=== PATIENT | female | born 1950 | race Caucasian/White ===

== ENCOUNTER → 2019-10-06 11:47 | Outpatient (CLI) | payer BC ==
[2010-03-13 09:27] VITALS: BMI 31.7
== END | disposition home or self-care (01) ==
LOC: D.LABREF 11:47
PROVIDERS: ATTEND Orthopaedic Surgery
DX: M17.11 Unilateral primary osteoarthritis, right knee (principal)

== ENCOUNTER 2020-12-26 16:06 | Inpatient (IN) | payer BC, MEDICARE ==
[~2020-12-26] VITALS: Ht 162.6 cm; Wt 76.2 kg
[2021-01-02] MEDS ORDERED: PRAVACHOL40 MG PO (08:49)
[2021-01-02] MEDS ORDERED: MOBIC7.5 MG PO (08:49)
[2021-01-02] MEDS ORDERED: ZYLOPRIM300 MG PO (08:49)
[2021-01-02] MEDS ORDERED: LISINOPRIL10 MG PO (08:49)
[2021-01-02] MEDS ORDERED: LOZOL 2.5 MG T2.5 MG PO (08:49)
[2021-01-02] MEDS ORDERED: K-DUR20 MEQ PO (08:50)
[2021-01-02] MEDS ORDERED: METHOCARBAMOL500 MG PO (08:50)
[2021-01-02] MEDS ORDERED: ULTRAM50 MG PO (08:50)
[2021-01-02] MEDS ORDERED: ESTRACE2 MG PO (08:50)
[2021-01-02] MEDS ORDERED: BAYER CHEWABLE81 MG PO (08:51)
[2021-01-02] MEDS ORDERED: ZYRTEC10 MG PO (08:53)
[2021-01-02] MEDS ORDERED: PEPCID AC20 MG PO (08:53)
[2021-01-02] MEDS ORDERED: COLACE100 MG PO (08:54)
[2021-01-02] MEDS ORDERED: TIROSINT50 MCG PO (09:05)
[2021-01-02 09:58] LABS: BASOPHILS 0.2 % (0-2); EOSINOPHILS 7.6 % (0-7); HEMATOCRIT 35.8 % (36.0-48.0); HEMOGLOBIN 11.5 g/dL (12-16); IMMATURE GRANULOCYTES 0.2 % (0-5); LYMPHOCYTE ABS# 3.03 10x3/uL (1.18-3.74); LYMPHOCYTES 24.4 % (15-50); MCH 30.4 pg (26.0-34.0); MCHC 32.1 g/dL (31.0-37.0); MCV 94.7 fL (80.0-100.0); MEAN PLATELET VOLUME 10.2 fL (7.4-10.4); MONOCYTES 7.9 % (2-11); NEUTROPHILS 59.7 % (40-80); PLATELET COUNT 251 10x3/uL (130-400); RBC 3.78 10x6/uL (4.00-5.40); RDW 14.1 % (11.5-14.5); WBC 12.4 10x3/uL (4.8-10.8)
[2021-01-02 10:09] LABS: ANION GAP 11.5 mmol/L (8-16); CALCIUM 9.3 mg/dL (8.5-10.1); CREATININE - SERUM 1.1 mg/dL (0.6-1.3); POTASSIUM - SERUM 3.5 mmol/L (3.5-5.1)
[2021-01-02 10:12] LABS: BILIRUBIN NEGATIVE (NEGATIVE); KETONE NEGATIVE (NEGATIVE); NITRITE NEGATIVE (NEGATIVE); SQUAMOUS EPITHELIAL 0-5 HPF (0-4); UROBILINOGEN NORMAL mg/dL (< 2); WHITE CELLS - URINE 0-5 HPF (0-4)
[2021-01-02 10:13] LABS: BACTERIA MODERATE HPF (NONE SEEN)
[2021-01-02 10:20] LABS: PROTIME 12.2 SECONDS (11.6-15.0)
[2021-01-07] VITALS (9 sets, daily range): BP systolic 96–122; BP diastolic 66–86; BMI 28.9
[2021-01-07 08:43] LABS: BILIRUBIN NEGATIVE (NEGATIVE); KETONE NEGATIVE (NEGATIVE); NITRITE NEGATIVE (NEGATIVE); UROBILINOGEN NORMAL mg/dL (< 2)
--- NOTE | 2021-01-07 10:45 | NUR ---
CAUTERY PAD PLACED ON RIGHT BUTTOCK. PLASMA BLADE USED ON SETTING 6/8. AQUAMANTYS USED ON SETTING 170. CAUTERY PAD LOT#[id number] EXP. 06/10/2022
--- NOTE | 2021-01-07 20:10 | NUR ---
ASSESSMENT PER FLOW SHEET, VS OBTAINED, IV IN RIGHT FA INTACT WITH NO REDNESS OR EDEMA INFUSING VIA PUMP 1/2NS PER MD ORDERS, SEE EMAR, DRESSING TO LEFT KNEE CDI WITH NO DRAINAGE NOTED, KNEE IN CPM AT THIS TIME, INFORMED PT THAT I WILL COME OFF AROUND 9:30PM, PT VERBALIZES UNDERSTANDING, PT REQUESTS PAIN MED WITH 9PM MEDS, INFORMED PT THAT I WILL ADM THEN, SCD'S CONNECTED TO PUMP AND WORKING PROPERLY, PT DENIES FURTHER NEEDS
--- NOTE | 2021-01-07 21:28 | NUR ---
PT REMOVED FROM CPM
--- NOTE | 2021-01-07 21:45 | NUR ---
PT AWAKE, ADM 2100 MEDS, PAIN MED, AND ANCEF PER MD ORDERS, SEE EMAR, WITH FRESH H20 AND SNACK, PT DENIES FURTHER NEEDS
--- NOTE | 2021-01-07 22:30 | NUR ---
PT UP TO BR VIA WALKER WITH ASSISTANCE, VOIDED WITH NO DIFFICULTY, PT BACK TO BED, SCD'S CONNECTED TO PUMP AND WORKING PROPERLY, PT REQUESTED AND PROVIDED BOX OF TISSUE, DENIES FURTHER NEEDS
[2021-01-08 00:12] VITALS: BP 100/57
--- NOTE | 2021-01-08 00:12 | NUR ---
PT RESTING WITH EYES CLOSED, AROUSES TO SOFT VERBAL STIMULATION, VS OBTAINED, FRESH ICE PACK TO KNEE, PT DENIES NEEDS OR PAIN AT THIS TIME
--- NOTE | 2021-01-08 01:31 | NUR ---
PT ASSOCIATE SALES MANAGER LIGHT, C/O PAIN, ADM NORCO PER MD ORDERS, SEE EMAR, PT DENIES FURTHER NEEDS
--- NOTE | 2021-01-08 03:22 | NUR ---
PT RESTING WITH EYES CLOSED, RESP QUIET, NO DISTRESS NOTED, LEFT UNDISTURBED AT THIS TIME
[2021-01-08 05:50] VITALS: BP 117/58
--- NOTE | 2021-01-08 05:50 | NUR ---
PT AWAKE, PT UP TO BR VIA WALKER WITH ASSISTANCE, VOIDED WITH NO DIFFICULTY, PT BACK TO BED, SCD'S RECONNECTED AND WORKING PROPERLY, ADM PAIN MED AND HUNG ANCEF IVPB PER MD ORDERS, SEE EMAR, FRESH H20 SERVED
--- NOTE | 2021-01-08 06:00 | NUR ---
PT PLACED ON CPM AT THIS TIME
[2021-01-08 06:07] LABS: HEMATOCRIT 28.2 % (36.0-48.0); HEMOGLOBIN 8.9 g/dL (12-16); MCHC 31.6 g/dL (31.0-37.0); MCV 94.9 fL (80.0-100.0); MEAN PLATELET VOLUME 10.4 fL (7.4-10.4); RBC 2.97 10x6/uL (4.00-5.40); RDW 14.4 % (11.5-14.5); WBC 11.8 10x3/uL (4.8-10.8)
[2021-01-08 07:15] VITALS: BP 101/46
--- NOTE | 2021-01-08 08:07 | OP ---
PATIENT NAME: RACHAEL ESPAÑA MEDICAL RECORD: [id number] :46 LOCATION:D. D.1208 ADMISSION DATE:01/07/21 SURGEON: CYRUS VILLAFANA DO DATE OF OPERATION: 01/07/2021 PROCEDURE PERFORMED: Left total knee arthroplasty. PREOPERATIVE DIAGNOSIS: Left knee osteoarthritis. POSTOPERATIVE DIAGNOSIS: Left knee osteoarthritis. INDICATIONS: Ms. España is a 70-year-old female who is well known to me, replaced her right knee last year. She waited to get her left knee done as it has given her just many problems to the right knee did prior to the replacement. She was tired of dealing with the pain and wanted something done surgically as it was affecting her activities of daily living. She was aware of the risks including infection, bleeding, damage to nerves and vessels, need for further surgery, continued pain, arthrofibrosis of the knee, loss of motion, failure of implants, loosening, need for further surgery, blood clots and even and she signed the consent. SURGEON: Cyrus Villafana DO DESCRIPTION OF PROCEDURE: The patient was taken to the operative suite, laid in supine position, given general anesthetic and LMA was placed. She was given 2 grams of Ancef, 80 mg gentamicin, a gram of TXA. She was given an adductor canal block as well. The left lower extremity was then prepped and draped in a sterile fashion. A timeout was performed. Everyone was in agreement with correct side, site, and patient and procedure. I then marked out the incision on the anterior knee and covered in Ioban. The mid incision down through the marked incision and made careful dissection down to the capsule. The capsule was then opened using a medial parapatellar approach with a fresh 10 blade scalpel to coagulate any bleeders on the way with an Aquamantys. The patella was then everted and fat pad partially removed. I then milled the patella down for a patellar implant and then exposed the femur, removed the ACL, drilled into the femoral canal. I then put the intramedullary guide and cut the distal femur off the guide. Once I did remove that bone on the distal femur and went to the tibia using extramedullary guide and cut 2 mm off the medial side of the tibia. We then brought the knee into extension, removed the menisci. I coagulated any bleeders. I tried with a 10 extension block. It did not fit, so we flexed the knee back up and cut 2 mm more off the tibia. Once fitted that, 10 extension block fit well. I then removed the pins holding the cutting block and incised the femur to be a 9, put the 9 on and it did not quite cut enough, so dropped down to an 8, 8 cut the femur very well and used a 4-in-1 cutting block to remove the rest of the bone. I then exposed the tibia, sized it to be an E, pinned it into place and impacted on the 8 femur, secured with a narrow femur and then put in a 10 poly, it fit very well, had good range of motion. I then drilled the lug holes on the femur and the drill holes in the patella through the guide. I then reamed and punched the tibia, put extra holes in the tibia for cement, I irrigated that out and put the cement in the tibial and the implant impacted in place, removed the excess cement and impacted the femur on and then put a 10 poly in between and brought the knee into extension. I cleaned out the patella, put the cement in the patella and on the implant and squeezing it in place, removed the excess cement and put in 10% povidine iodine and 500 mL of normal saline solution and let it sit for 3 minutes and irrigated OPERATIVE REPORT [id number] RACHAEL ESPAÑA out with a liter of normal saline. I then sized an 11 poly and it fit very well and then removed that and inserted a 11 poly in on the tibial tray and locked it into place, squeezed into place and then ranged the knee. The knee ranged very well with medial congruent bearing. I then irrigated one more time, put in Rik and vancomycin and tobramycin powder, closed the capsule with #1 Vicryl in a dnytie-rw-evrzm fashion. Then, Abhay Ramos, certified surgical technician ran a Stratafix on the capsule, closing it. He then closed the skin with 2-0 Vicryl in inverted interrupted fashion, put a ZipLine, Adaptic, 4 x 4s, ABD, cast padding, Shorty wrap on the knee. She was then awakened and taken to recovery in stable condition. Given another gram of TXA. BLOOD LOSS: Approximately 200 mL. COMPLICATIONS: None. TRANSINT:[id number] Voice Confirmation ID: [id number] DOCUMENT ID: [id number] CYRUS VILLAFANA DO at 0807 CC: [id number] DICTATION DATE: 01/07/21 1158 INDUSTRIAL ENGINEERING ANALYST: 01/07/21 1724 ADM IN [facility] [address] [place] [address]
[2021-01-08 12:00] VITALS: BP 123/60
[2021-01-08 14:14] VITALS: Ht 162.6 cm; Wt 76.2 kg
[2021-01-08 16:10] VITALS: BP 120/57
[2021-01-08 20:00] VITALS: BP 154/73
--- NOTE | 2021-01-08 20:00 | NUR ---
ALERT RESTING IN BED, DENIES NEEDS AT THIS TIME, CALL LIGHT IN REACH, REMINDED TO CALL FOR ASSISTANCE BEFORE GETTING UP, FALL PRECAUTIONS IN PLACE
[2021-01-09 04:00] VITALS: BP 160/78
[2021-01-09 07:58] LABS: HEMATOCRIT 31.3 % (36.0-48.0); HEMOGLOBIN 9.8 g/dL (12-16); MCH 30.1 pg (26.0-34.0); MCHC 31.3 g/dL (31.0-37.0); MEAN PLATELET VOLUME 10.8 fL (7.4-10.4); RBC 3.26 10x6/uL (4.00-5.40); RDW 14.2 % (11.5-14.5); WBC 10.8 10x3/uL (4.8-10.8)
[2021-01-09 08:15] VITALS: BP 130/76
--- NOTE | 2021-01-09 08:15 | NUR ---
PT RESTING QUIETLY IN BED WITH CPM IN PLACE. CPM REMOVED AT THIS TIME. ASSISTED PT TO BATHROOM AND BACK TO BED. PT GLYNN WELL. IV TO LEFT FOREARM, SALINE LOCKED AT THIS TIME. DRESSING C/D/I TO LEFT LOWER EXTREMITY. DENIES FURTHER NEEDS AT THIS TIME. CL WITHIN REACH. ENCOURAGED TO CALL WITH NEEDS. CONTINUE POC
[2021-01-09 12:07] VITALS: BP 139/72
--- NOTE | 2021-01-09 13:48 | NUR ---
Nutrition Follow-up: POD 2 L TKA. Ate 100% of breakfast this AM. Diet: Regular Wt: 168# (01/08) Labs reviewed Meds noted: Latisha Ambriz, 1/2NS @ 50 -RD will follow up within 5-7 days if pt still admitted.
[2021-01-09 15:34] VITALS: BP 125/62
[2021-01-09 20:00] VITALS: BP 129/70
--- NOTE | 2021-01-09 20:00 | NUR ---
ALERT RESTING IN BED DENIES NEEDS AT THIS TIME, CALL ALVERTO CONTEH, SEE SHIFT ASSESSMENT
[2021-01-10 04:00] VITALS: BP 124/61
[2021-01-10 07:00] VITALS: BP 140/68
[2021-01-10] MEDS ORDERED: HYDROCODON-ACE1 EA10 PO (07:04)
[2021-01-10] MEDS ORDERED: ELIQUIS2.5 MG PO (07:04)
[2021-01-10] MEDS ORDERED: VISTARIL25 MG PO (07:05)
[2021-01-10 08:03] VITALS: BP 140/68
--- NOTE | 2021-01-10 10:33 | MORECARE ---
CASE MANAGEMENT DISCHARGE SUMMARY PATIENT: RACHAEL SHERMAN UNIT: [id number] ADM DATE: 01/09/21 AGE: 70 : 48 SEX: F ROOM/BED: D.1208 AUTHOR: MARIO,DOC PHYSICIAN: REFERRING PHYSICIAN: LEXII VILLAFANA DO DATE OF SERVICE: 01/10/21 Case Management Discharge Planning Summary CT Patient Name: RACHAEL SHERMAN Attending MD : LEXII BROWN Medical Record: [id number] Encounter : [id number] Facility : [id number] [place] [address] Admission Date : 113:30 Center Discharge Date : [address] [place] [address] Date of : DC Plan ID : [id number] Age/Sex/Martia : 70/ F/M Printed on : 01/10/21 10:31 CT DCP Review Details Anticipated D/C: 01/10/2021 Expected LOS : 1 Case Status : INITIATED - Initial Reviewe: [id number] - Jose Luis Johnston Initial Review: 01/07/2021 Planned Disposi: 71 - Disch/Trans/Referred to Another Institution for Outpt Srvcs as specified by the disch plan of care Final Discharge: - Final Reviewer : : Final Review : DCP Focus Questions & Answers [facility] RACHAEL SHERMAN MR#: [id number] /Age/Sex/Rhrqbw7-Otq-49 /70/F /M Attending Physician Name: DI VILLAFANA [id number] Patient Account:[id number] [facility] Page -1 of 1 All edits/amendments must be made on the electronic document DICTATION DATE: 01/10/21 1031 ROOM SERVICE MANAGER: DM 01/10/21 1031 RPT#: [id number] DC DATE: STATUS: ADM IN [facility] [address] [place] [address] END OF REPORT
--- NOTE | 2021-01-10 10:55 | MORECARE ---
CASE MANAGEMENT DISCHARGE SUMMARY PATIENT: RACHAEL SHERMAN UNIT: [id number] ADM DATE: 01/09/21 AGE: 70 : 48 SEX: F ROOM/BED: D.1208 AUTHOR: MARIO,DOC PHYSICIAN: REFERRING PHYSICIAN: LEXII VILLAFANA DO DATE OF SERVICE: 01/10/21 Case Management Discharge Planning Summary CT Patient Name: RACHAEL SHERMAN Attending MD : LEXII BROWN Medical Record: [id number] Encounter : [id number] Facility : [address] [place] [address] Admission Date : 113:30 Center Discharge Date : [address] [place] [address] Date of : DC Plan ID : [id number] Age/Sex/Martia : 70/ F/M Printed on : 01/10/21 10:54 CT DCP Review Details Anticipated D/C: 01/10/2021 Expected LOS : 1 Case Status : INITIATED - Initial Reviewe: [id number] - Jose Luis Johnston Initial Review: 01/07/2021 Planned Disposi: 71 - Disch/Trans/Referred to Another Institution for Outpt Srvcs as specified by the disch plan of care Final Discharge: - Final Reviewer : : Final Review : DCP Focus Questions & Answers DCP Evaluation Patient and/or caregiver agree upon recommended Yes discharge plan? Patient's current cognitive status: *Oriented to person, place, situation, time and present Patient's ability to cope with chronic illness d. No chronic illness Patient gives permission to discuss discharge JAVIER SHERMAN, SPOUSE, plans with: (name, relationship and number) Does the patient have the ability to pay for or Yes attain post discharge needs / services? Functional screen assessment: No issues identified Functional screen assessment: Basic needs can adequately be met by self Physical Status: Independent with ADL's Equipment needed for post hospitalization: None Is there a likelihood that the patient will No require additional services to return to the preadmission environment? Living Arrangements: Home with Spouse/Significant Other Patient with capacity for self-care or can be Yes cared for in same environment as prior to hospitalization? Baseline cognitive status: *Oriented to person, place, situation, time and present Physical environment modification needed / No anticipated for discharge: Medication Management: Patient states can read and understand medication labels Medication Management: Patient states can afford medications Pharmacy name(s): [facility] 7 Does Patient have transportation to get home and Yes to follow-up medical appointments when discharged from the hospital? Would patient like to participate in any Care Not applicable Coordination programs (if applicable): Does the patient have electricity at home? Yes Does the patient have running water in their Yes house? Equipment in use: Walker - Rolling Equipment in use: Cane - Single Leg Other Equipment comments: CPM, ELEVATED Toilet Seat Mental health screen: No mental health history DCP Re-evaluation Would patient like to participate in any Care Not applicable Coordination programs (if applicable): [facility] RACHAEL SHERMAN MR#: [id number] /Age/Sex/Rfvbnq0-Vxu-09 /70/F /M Attending Physician Name: DI VILLAFANA [id number] Patient Account:[id number] [facility] Page -1 of 1 All edits/amendments must be made on the electronic document DICTATION DATE: 01/10/211053 BEAM SEALER: MYRANDA 01/10/21 105 RPT#: [id number] DC DATE: STATUS: ADM IN [facility] [address] [place] [address] END OF REPORT
[2021-01-10 11:35] VITALS: BP 115/64
--- NOTE | 2021-01-10 12:05 | NUR ---
1205 DRESSING CHANGED TO LEFT KNEE INCISIONAL SITE
--- NOTE | 2021-01-10 12:44 | NUR ---
0700 REPORT RECEIVED AWAKE ALERT SITTING UP IN BED ASSISTED UP TO BATHROOM WITH USE OF WALKER VOIDED WITH DIFFICULTY
--- NOTE | 2021-01-10 13:19 | NUR ---
1000 AMBULATING IN HALLS WITH PHYSICAL THERAPY GLYNN WELL
--- NOTE | 2021-01-10 13:24 | NUR ---
1300 WRITTEN AND VERBAL DISCHARGE PROVIDED PATIENT AND SPOUSE VERBALIZED UNDERSTANDNG DC IV SITE SATISFACTORY
--- NOTE | 2021-01-10 13:30 | NUR ---
1310 TRANSPORTED VIA WHEELCHAIR TO FRONT EXIT TO GO HOME WITH FAMILY
--- NOTE | 2021-01-10 14:19 | MORECARE ---
CASE MANAGEMENT DISCHARGE SUMMARY PATIENT: RACHAEL ESAPÑA UNIT: [id number] ADM DATE: 01/09/21 AGE: 70 : 48 SEX: F ROOM/BED: D.1208 AUTHOR: MARIO,DOC PHYSICIAN: REFERRING PHYSICIAN: LEXII VILLAFANA DO DATE OF SERVICE: 01/10/21 Case Management Discharge Planning Summary CT Patient Name: RACHAEL ESPAÑA Attending MD : LEXII BROWN Medical Record: [id number] Encounter : [id number] Facility : [address] [place] [address] Admission Date : 113:30 Center Discharge Date : 01/10/[address] [place] [id number] Date of : DC Plan ID : [id number] Age/Sex/Martia : 70/ F/M Printed on : 01/10/21 14:17 CT DCP Review Details Anticipated D/C: 01/10/2021 Expected LOS : 1 Case Status : INITIATED - Initial Reviewe: [id number] - Jose Luis Johnston Initial Review: 01/07/2021 Planned Disposi: 71 - Disch/Trans/Referred to Another Institution for Outpt Srvcs as specified by the disch plan of care Final Discharge: - Final Reviewer : : Final Review : Comments CT Entered Date Type Reviewer 01/10/21 10:54 CT Discharge Planning Jose Luis Johnston Comment [facility]. CM met with patient to complete DC plan and to evaluate needs. Patient lives independently with her spouse, Tommy España, . At discharge, the patient plans to return home and feels this is a safe discharge. Patient stated that her PCP is Dr. Morales and she is able to fill her medications at [facility] on [address] without financial difficulty. Patient stated that she only has 1 step to navigate to enter her home and she does not have difficulty. CM discussed availability of home health, rehab services, and medical equipment. Patient declined SNF, IPR, and DME. Patient stated that she has an elevated toilet seat, CPM, walker, and Cane. Patient stated that her shower has integrated benches. Patient stated that she would like to go to outpatient rehab at [facility]. VIDYA signed and placed on chart. Patient voiced no other needs at this time and is satisfied with DC plan. Transportation provider at discharge will be with her , Tommy. Signed form also left with the patient. CM will continue to follow and will assist as needed with dc plans/needs. DCP Focus Questions & Answers DCP Evaluation Patient and/or caregiver agree upon recommended Yes discharge plan? Patient's current cognitive status: *Oriented to person, place, situation, time and present Patient's ability to cope with chronic illness d. No chronic illness Patient gives permission to discuss discharge TOMMY ESPAÑA, SPOUSE, plans with: (name, relationship and number) Does the patient have the ability to pay for or Yes attain post discharge needs / services? Functional screen assessment: No issues identified Functional screen assessment: Basic needs can adequately be met by self Physical Status: Independent with ADL's Equipment needed for post hospitalization: None Is there a likelihood that the patient will No require additional services to return to the preadmission environment? Living Arrangements: Home with Spouse/Significant Other Patient with capacity for self-care or can be Yes cared for in same environment as prior to hospitalization? Baseline cognitive status: *Oriented to person, place, situation, time and present Physical environment modification needed / No anticipated for discharge: Medication Management: Patient states can read and understand medication labels Medication Management: Patient states can afford medications Pharmacy name(s): [facility] [employer] [facility] 7 Does Patient have transportation to get home and Yes to follow-up medical appointments when discharged from the hospital? Would patient like to participate in any Care Not applicable Coordination programs (if applicable): Does the patient have electricity at home? Yes Does the patient have running water in their Yes house? Equipment in use: Walker - Rolling Equipment in use: Cane - Single Leg Other Equipment comments: CPM, ELEVATED Toilet Seat Mental health screen: No mental health history DCP Re-evaluation Would patient like to participate in any Care Not applicable Coordination programs (if applicable): [facility] RACHAEL ESPAÑA MR#: [id number] /Age/Sex/Ayvcqu6-Uhw-47 /70/F /M Attending Physician Name: DI VILLAFANA [id number] Patient Account:[id number] [facility] Page -1 of 1 All edits/amendments must be made on the electronic document DICTATION DATE: 01/10/211416 [employer]ORNE OPERATIONS SUPERINTENDENT: MYRANDA 01/10/21 141 RPT#: [id number] DC DATE:01/10/21 STATUS: DIS IN [facility] [address] [place] [address] END OF REPORT
--- NOTE | 2021-01-13 17:34 | MORECARE ---
CASE MANAGEMENT DISCHARGE SUMMARY PATIENT: RACHAEL ESPAÑA UNIT: [id number] ADM DATE: 01/07/21 AGE: 70 : 48 SEX: F ROOM/BED: D.1208 AUTHOR: MARIO,DOC PHYSICIAN: REFERRING PHYSICIAN: LEXII VILLAFANA DO DATE OF SERVICE: 01/13/21 Case Management Discharge Planning Summary CT Patient Name: RACHAEL ESPAÑA Attending MD : LEXII BROWN Medical Record: [id number] Encounter : [id number] Facility : [address] [place] [address] Admission Date : 01/07/2021 8:54 Center Discharge Date : 01/10/[address] [place] [address] Date of : DC Plan ID : [id number] Age/Sex/Martia : 70/ F/M Printed on : 01/13/21 17:33 CT DCP Review Details Anticipated D/C: 01/10/2021 Expected LOS : 1 Case Status : INITIATED - Initial Reviewe: [id number] - Jose Luis oJhnston Initial Review: 01/07/2021 Planned Disposi: 71 - Disch/Trans/Referred to Another Institution for Outpt Srvcs as specified by the disch plan of care Final Discharge: - Final Reviewer : : Final Review : Comments CT Entered Date Type Reviewer 01/10/21 10:54 CT Discharge Planning Jose Luis Johnston Comment [facility]. CM met with patient to complete DC plan and to evaluate needs. Patient lives independently with her spouse, Tommy España, . At discharge, the patient plans to return home and feels this is a safe discharge. Patient stated that her PCP is Dr. Morales and she is able to fill her medications at [facility] on [address] without financial difficulty. Patient stated that she only has 1 step to navigate to enter her home and she does not have difficulty. CM discussed availability of home health, rehab services, and medical equipment. Patient declined SNF, IPR, and DME. Patient stated that she has an elevated toilet seat, CPM, walker, and Cane. Patient stated that her shower has integrated benches. Patient stated that she would like to go to outpatient rehab at [facility]. VIDAY signed and placed on chart. Patient voiced no other needs at this time and is satisfied with DC plan. Transportation provider at discharge will be with her , Tommy. Signed form also left with the patient. CM will continue to follow and will assist as needed with dc plans/needs. DCP Focus Questions & Answers DCP Evaluation Patient and/or caregiver agree upon recommended Yes discharge plan? Patient's current cognitive status: *Oriented to person, place, situation, time and present Patient's ability to cope with chronic illness d. No chronic illness Patient gives permission to discuss discharge TOMMY ESPAÑA, SPOUSE, plans with: (name, relationship and number) Does the patient have the ability to pay for or Yes attain post discharge needs / services? Functional screen assessment: No issues identified Functional screen assessment: Basic needs can adequately be met by self Physical Status: Independent with ADL's Equipment needed for post hospitalization: None Is there a likelihood that the patient will No require additional services to return to the preadmission environment? Living Arrangements: Home with Spouse/Significant Other Patient with capacity for self-care or can be Yes cared for in same environment as prior to hospitalization? Baseline cognitive status: *Oriented to person, place, situation, time and present Physical environment modification needed / No anticipated for discharge: Medication Management: Patient states can read and understand medication labels Medication Management: Patient states can afford medications Pharmacy name(s): [facility] [employer] [facility] 7 Does Patient have transportation to get home and Yes to follow-up medical appointments when discharged from the hospital? Would patient like to participate in any Care Not applicable Coordination programs (if applicable): Does the patient have electricity at home? Yes Does the patient have running water in their Yes house? Equipment in use: Walker - Rolling Equipment in use: Cane - Single Leg Other Equipment comments: CPM, ELEVATED Toilet Seat Mental health screen: No mental health history DCP Re-evaluation Would patient like to participate in any Care Not applicable Coordination programs (if applicable): [facility] RACHAEL ESPAÑA MR#: [id number] /Age/Sex/Mfmpro3-Qzl-37 /70/F /M Attending Physician Name: DI VILLAFANA [id number] Patient Account:[id number] [facility] Page -1 of 1 All edits/amendments must be made on the electronic document DICTATION DATE: 01/13/211732 PRINT WASHER: MYRANDA 01/13/211732 RPT#: [id number] DC DATE:01/10/21 STATUS: DIS IN [facility] [address] [facility] [place] [address] END OF REPORT
== END 2021-01-10 13:10 | disposition home or self-care (01) | DRG 470 ==
LOC: OBSVTIME → D.M3 01-07 08:54 → D.SDCHOLD 01-07 09:15 → D.M3 01-07 12:32 → D.SDCHOLD 01-07 12:32 → D.M3 01-07 12:32 → OBSVTIME 01-07 12:33 → D.SDCHOLD 01-07 13:15 → D.M3 01-09 13:30
PROVIDERS: ADMIT Orthopaedic Surgery; ATTEND Orthopaedic Surgery
PROC: 0SRD0J9 Replacement of Left Knee Joint with Synthetic Substitute, Cemented, Open Approach (ICD-10-PCS; principal; 2021-01-07 09:15)
DX: M17.12 Unilateral primary osteoarthritis, left knee (principal); I10 Essential (primary) hypertension; E03.9 Hypothyroidism, unspecified

== ENCOUNTER 2021-04-07 14:40 | Outpatient (CLI) | payer BC ==
[2021-01-08 14:14] VITALS: BMI 28.8
[~2021-04-07 14:40] MED LIST: BAYER CHEWABLE81 MG PO; COLACE100 MG PO; ELIQUIS2.5 MG PO; ESTRACE2 MG PO; HYDROCODON-ACE1 EA10 PO; K-DUR20 MEQ PO; LISINOPRIL10 MG PO; LOZOL 2.5 MG T2.5 MG PO; METHOCARBAMOL500 MG PO; MOBIC7.5 MG PO; PEPCID AC20 MG PO; PRAVACHOL40 MG PO; TIROSINT50 MCG PO; ULTRAM50 MG PO; VISTARIL25 MG PO; ZYLOPRIM300 MG PO; ZYRTEC10 MG PO
== END 2021-04-07 23:59 | disposition home or self-care (01) ==
LOC: D.MAMMO 14:40
PROVIDERS: ATTEND Family Medicine
DX: Z12.31 Encounter for screening mammogram for malignant neoplasm of breast (principal)